=== PATIENT | male | born 1975 | race Caucasian/White ===

== ENCOUNTER → 2017-04-15 | Outpatient (CLI) | payer BC ==
[~2017-04-15] MED LIST: CYCL10TA2 PO; DOCU-109 PO; HYDR-2758 PO; HYDR-2762 PO; IBUP-1060 PO; NAPR500T4 PO
[2017-04-15 16:07] LABS: BASO # 0.1 x10^3/uL (0.0-0.2); BASO % 1 % (0-3); EOS % 2 % (0-3); HEMOGLOBIN 15.6 g/dL (13.0-17.5); LYMPH # 2.9 x10^3/uL (1.0-4.8); LYMPH % 28 % (24-48); MEAN CORPUSCULAR HEMOGLOBIN 29 pg (25-35); MEAN CORPUSCULAR HGB CONC 35 g/dL (31-37); MEAN CORPUSCULAR VOLUME 83 fL (79-100); MONO % 8 % (0-9); NEUT % 61 % (31-73); PLATELET COUNT 289 x10^3/uL (140-400); RED BLOOD COUNT 5.45 x10^6/uL (4.30-5.70); RED CELL DISTRIBUTION WIDTH 13.8 % (11.5-14.5); WHITE BLOOD COUNT 10.3 x10^3/uL (4.0-11.0)
[2017-04-15 16:30] LABS: ALBUMIN 4.4 g/dL (3.4-5.0); ALBUMIN/GLOBULIN RATIO 1.2 (1.0-1.7); CALCIUM 9.1 mg/dL (8.5-10.1); CREATININE 1.1 mg/dL (0.7-1.3); GFR 74.1; POTASSIUM 3.9 mmol/L (3.5-5.1); TOTAL BILIRUBIN 0.6 mg/dL (0.2-1.0)
--- NOTE | 2017-04-17 15:47 | PREOP HP ---
DATE OF SERVICE: 04/17/2017 HISTORY OF PRESENT ILLNESS: The patient is a pleasant 41-year-old who has a problem with a herniated disk on the right side at C6-C7 with right triceps weakness. He notes that his pain has been increasing recently. He continues to notice that looking up makes his right fingers go numb. He feels the weakness in his right arm is about the same. His right neck and shoulder pain have increased. He rates his pain as a 3/10 at rest. He continues to notice improvement when he looks down and to the left. He notes that he is taking [place] and Flexeril still. Because of cost considerations, he did not go forward with epidural steroid injections. He limited his activities, but that has not helped him. PAST MEDICAL HISTORY: Head/neck injury. PAST SURGICAL HISTORY: Cervical laminectomy in 2009. FAMILY HISTORY: Diabetes. 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 . Regular exercises. Denies tobacco use. Denies alcohol consumption. Drinks coffee and tea daily. ALLERGIES: PENICILLIN. CURRENT MEDICATIONS: Ibuprofen, hydrocodone/acetaminophen, cyclobenzaprine. REVIEW OF SYSTEMS: A 12-point review of systems was obtained and is noncontributory except that mentioned above. PHYSICAL EXAMINATION: GENERAL APPEARANCE: Alert, pleasant, no acute distress. HEAD: Normocephalic and atraumatic. EXTREMITIES: No clubbing, cyanosis or edema. NEUROLOGIC: Strength was 5/5 in bilateral upper extremities except for the fact that he continues to have 4/5 strength in his right triceps, although I believe it is slightly stronger than his last visit. Sensation intact to light touch in bilateral upper extremities except he notices numbness in the fingers of his right hand when he looks down and to the right. The remainder of the examination is unremarkable. He continues to have tenderness in the posterior cervical region on the right side over the right trapezius muscle. Normal gait. ASSESSMENT: 1. Cervical disk disorder at C5-C6 level with radiculopathy. 2. Cervical disk disorder at C6-C7 with radiculopathy. The patient thinks pain is increasing. His strength is perhaps slightly better, but not significantly so. At this point, my recommendation is for him to undergo a 2-level anterior cervical diskectomy and fusion to include C6-C7 and C5-C6. I outlined the surgery and the risks involved including injury to the carotid artery, trachea, esophagus. I spoke about the risks of paralysis. I outlined the postoperative course for him. He would like to go ahead. We will make the arrangements. NIC CARLIN MD DR: ANDREA/derian JOB#: [id number] / [id number]
== END | disposition home or self-care (01) ==
LOC: SURGPAT 13:05
PROVIDERS: ATTEND Neurological Surgery
DX: Z01.818 Encounter for other preprocedural examination (principal); M50.122 Cervical disc disorder at C5-C6 level with radiculopathy; M50.123 Cervical disc disorder at C6-C7 level with radiculopathy
CPT/HCPCS: 36415; 80053; 85025; 87641

== ENCOUNTER 2017-04-19 07:11 | Observation (INO) | payer BC ==
[2017-04-19] VITALS (9 sets, daily range): BP systolic 103–119; BP diastolic 55–81
[~2017-04-19] VITALS: Ht 185.4 cm; Wt 98.9 kg
[~2017-04-19 07:11] MED LIST changes: +BACITRACIN 50,000 UNIT in IV NORMAL SALINE 1000ML BAG 1,000 ML IRR ONE; +BUPIVAC MPF-EPI 0.5%-1:200000 30 ML VIAL. ONE; -DOCU-109 PO; +GELATIN SPONGE SIZE 100. ONE; -HYDR-2762 PO; +HYDROmorphone 2 MG/ML VIAL IV PRN; +IV RINGERS,LACTATED 1000ML 1,000 ML IV SCH; +LIDOCAINE 1% PF 2 ML VIAL. ID PRN; +ONDANSETRON PF 4 MG/2 ML VIAL. IV PRN; +PROCHLORPERAZINE 10 MG/2 ML VIAL. IV PRN; +THROMBIN TOPICAL 20,000 UNIT SPRAY.SYRN KIT TP ONE; +VANCOMYCIN 1GM IVPB FOR OMNI 250 ML IV PRN; +fentaNYL PF VIAL 100 MCG/2 ML VIAL IV PRN
[2017-04-19] MEDS ORDERED: ROCURONIUM 50 MG/5 ML VIAL. ONE (08:24)
[2017-04-19] MEDS ORDERED: REMIFENTANIL 2 MG VIAL. IV ONE (08:24)
[2017-04-19] MEDS ORDERED: MIDAZOLAM HCL/PF 2 MG/2 ML VIAL. ONE (08:24)
[2017-04-19] MEDS ORDERED: fentaNYL PF VIAL 250 MCG/5 ML VIAL ONE (08:24)
[2017-04-19] MEDS ORDERED: PROPOFOL 50 ML IV ONE (08:25)
[2017-04-19] MEDS ORDERED: PROPOFOL 20 ML IV ONE (08:25)
[2017-04-19] MEDS ORDERED: ONDANSETRON PF 4 MG/2 ML VIAL. ONE (08:25)
[2017-04-19] MEDS ORDERED: DEXAMETHASONE SOD PHOS 20 MG/5 ML VIAL. ONE (08:25)
[2017-04-19] MEDS ORDERED: LIDOCAINE 2% PF Vial for OR 5 ML VIAL. ONE (08:25)
[2017-04-19] MEDS ORDERED: 0.9 % SODIUM CHLORIDE 50 ML VIAL. IJ ONE (08:29)
[2017-04-19] MEDS ORDERED: DESFLURANE > 120 MINUTES IH ONE (12:10)
[2017-04-19] MEDS ORDERED: diphenhydrAMINE HCL 25 MG CAPSULE PO PRN (12:15)
[2017-04-19] MEDS ORDERED: diphenhydrAMINE 50 MG/ML VIAL IV PRN (12:15)
[2017-04-19] MEDS ORDERED: 0.9 % SODIUM CHLORIDE 10 ML DISP.SYRIN. IV PRN (12:15)
[2017-04-19] MEDS ORDERED: ACETAMINOPHEN 325 MG TABLET. PO PRN (12:15)
[2017-04-19] MEDS ORDERED: ZOLPIDEM 5 MG TABLET. PO PRN (12:15)
[2017-04-19] MEDS ORDERED: CYCLOBENZAPRINE 10 MG TABLET. PO PRN (12:15)
[2017-04-19] MEDS ORDERED: fentaNYL PF VIAL 100 MCG/2 ML VIAL IV PRN (12:15)
[2017-04-19] MEDS ORDERED: MAGNESIUM HYDROXIDE 2,400 MG/30 ML ORAL.SUSP. PO PRN (12:15)
[2017-04-19] MEDS ORDERED: ONDANSETRON PF 4 MG/2 ML VIAL. IV PRN (12:15)
[2017-04-19] MEDS ORDERED: MAG HYDROX/ALUMINUM HYD/SIMETH 30 ML ORAL.SUSP PO PRN (12:15)
[2017-04-19] MEDS ORDERED: HYDROcodone/APAP 7.5/325MG 1 TAB TABLET PO PRN (12:15)
[2017-04-19] MEDS ORDERED: CALCIUM CARBONATE 500 MG TAB.CHEW PO PRN (12:15)
[2017-04-19] MEDS: MORPHINE SULFATE 2 MG/ML DISP.SYRIN. IV PRN ×2 (12:46→13:07)
--- NOTE | 2017-04-19 14:11 | OP ---
DATE OF SURGERY: 04/19/2017 PREOPERATIVE DIAGNOSES: Herniated cervical disc, C5-C6, C6-C7, with right cervical radiculopathy and weakness. POSTOPERATIVE DIAGNOSIS: Herniated cervical disc, C5-C6, C6-C7, with right cervical radiculopathy and weakness. OPERATION PERFORMED: Anterior cervical microdiscectomy C5-C6, C6-C7; anterior cervical interbody fusion C5-C6, C6-C7, with allograft bone block, anterior cervical plate C5, C6, C7. The operation was done with EMG monitoring, SSEP monitoring, Nims monitoring, fluoroscopy, microscopic dissection. SURGEON: Robert Carlin M.D. MONITOR AND STORAGE BIN TENDER: Karson Nino MD, assisted with surgery, assisted with the exposure, the two level microdiscectomy, fusion, instrumentation and closure. Note the instrumentation used was [employer]. OPERATIVE INDICATIONS: The patient is a very pleasant 41-year-old who developed severe intractable neck and right arm pain along with right triceps weakness. He was followed for a time. The problem would not resolve, and he actually began to develop more and more difficulties, especially as he tried to increase his activities. On imaging studies, there was a herniated cervical disc on the right side of moderate size with severe right lateral recess and neural foraminal narrowing at C6-C7. At C5-C6, there was a left-sided disc herniation of similar size and configuration. I recommended a 2-level anterior cervical microdiscectomy and fusion. I spoke with him about the surgery and the risks, technique and expected postoperative course, and he wished to go ahead. DESCRIPTION OF PROCEDURE: Following general endotracheal anesthesia, the patient was positioned supine on the operating room table. Anterior cervical region was then placed in a neutral position. He was prepped and draped in the standard fashion. CINTHYA hose and A-V impulse boots were applied for DVT prophylaxis. A microscope was draped. Fluoroscopy was draped and brought in the field. Vancomycin 1 gram was given. Using fluoroscopic guidance, an incision was made from the midline around to the right side in the skin crease in the anterior cervical region. I dissected the skin, subcutaneous tissue. I dissected around the medial aspect of the sternocleidomastoid and carotid artery sheath after sharply dividing a portion of the platysma muscle. I reflected gently the trachea and esophagus contralaterally, and I confirmed my position at C6-C7. I placed the retractors, wedged in the longus colli muscle and placed 14 mm pins in C6 and C7 and brought in the microscope at this time. I distracted the disc space and incised the anterior annulus with #11 blade. I performed discectomy with pituitary rongeurs. I carefully scraped away the cartilaginous endplate posteriorly, I drilled the posterior spurring and then gently worked through the annulus, which was largely torn, trimming this away, there was a large subligamentous disc fragment. I did open the ligament widely bilaterally, and this actually helped me lift up and tease back multiple disc fragments from the right lateral recess. As I worked, I was able to fully decompress the entire region. I irrigated copiously with antibiotic solution. Hemostasis was excellent. I did prepare the endplates carefully, and I measured and placed a 7 mm lordotic cage, which was packed with allograft bone. This was gently tapped into position and then removed the pin from C7 and moved the retractors up to C5-C6. I performed the identical operation at C5-C6, although the disc was on the left side at this point. Again, it was a subligamentous disc fragment. Again in a similar fashion, I opened the annulus and ligament and teased back and removed multiple disc fragments and opened this area widely. I also worked toward the right side as well and assured myself that that site was quite free and open. I again prepared the endplate. I again obtained perfect hemostasis. I placed an interbody fusion cage, which was 7 mm, which again was packed with allograft. Once this was tapped into position, I then measured and placed a 31 mm anterior plate, I placed the superior and inferior 14 mm screws first, followed by the remaining screws. I did not like the purchase of the inferior 2 screws and switched these out for rescue screws, which were 4.5 mm. At this point, I had excellent secure contact with the underlying bone. The plate was in excellent position. I irrigated copiously. I locked all of the screws and then removed the retractor. I explored carefully and assured myself of excellent hemostasis. Films looked quite good. I closed the platysma as a separate layer, then closed the subcutaneous tissues. The skin was closed with a 4-0 subcuticular stitch. The operation went very well. I was quite pleased with the surgery. ROBERT CARLIN MD DR: ANDREA/derian JOB#: [id number] / [id number] RADHA
[2017-04-19] MEDS: DOCUSATE SODIUM 100 MG CAPSULE. PO SCH ×2 (14:21→20:58)
[2017-04-19] MEDS: POTASSIUM CL 20MEQ D5-0.45NACL 1,000 ML IV SCH (14:22)
[2017-04-19] MEDS: fentaNYL PF VIAL 100 MCG/2 ML VIAL IV PRN (18:19)
[2017-04-19] MEDS ORDERED: VANCOMYCIN 1 GM in IV DEXTROSE 5% 250 ML IV ONE (21:00)
[2017-04-20] MEDS: POTASSIUM CL 20MEQ D5-0.45NACL 1,000 ML IV SCH ×2 (01:58→14:41)
[2017-04-20] MEDS: fentaNYL PF VIAL 100 MCG/2 ML VIAL IV PRN ×2 (01:58→05:59)
[2017-04-20 03:00] VITALS: BP 110/70
[2017-04-20 07:00] VITALS: BP 128/81
[2017-04-20] MEDS: DOCUSATE SODIUM 100 MG CAPSULE. PO SCH (09:26)
[2017-04-20] MEDS: HYDROcodone/APAP 7.5/325MG 1 TAB TABLET PO PRN ×2 (09:29→15:31)
[2017-04-20 11:00] VITALS: BP 133/86
--- NOTE | 2017-04-20 11:26 | PDOC ---
PROGRESS NOTES Subjective Subjective POD #1 S/P ACDF C5-6, C6-7 Still some right arm pain and numbness Objective Objective Vital Signs Date Time Temp Pulse Resp B/P (MAP) Pulse Ox O2 Delivery O2 Flow Rate FiO2 04/20/17 10:46 95 Room Air 2.0 04/20/17 07:00 98.2 95 18 128/81 (97) 98.2 Intake and Output 04/20/17 07:00 Intake Total 2240 ml Output Total 725 ml Balance 1515 ml Intake Oral 490 ml IV Total 1750 ml Output Urine Total 700 ml Estimated Blood Loss 25 ml Physical Exam General: Alert, Oriented X3, Cooperative, Other (voice clear) Neuro: Other (strength in UE now 5/5) Skin: Other (dressing C,D,I, flat) Plan Plan of Care may dc home f/u 2 weeks Comment Review of Relevant I have reviewed the following items ivan (where applicable) has been applied. Medications Current Medications Ondansetron HCl (Zofran) 4 mg PRN Q6HRS PRN IV NAUSEA/VOMITING; Start 04/19/17 at 07:00; Stop 04/20/17 at 06:59; Status DC Fentanyl Citrate (Fentanyl 2ml Vial) 25 mcg PRN Q5MIN PRN IV MILD PAIN; Start 04/19/17 at 07:00; Stop 04/20/17 at 06:59; Status DC Fentanyl Citrate (Fentanyl 2ml Vial) 50 mcg PRN Q5MIN PRN IV MODERATE PAIN; Start 04/19/17 at 07:00; Stop 04/20/17 at 06:59; Status DC Morphine Sulfate 1 mg PRN Q10MIN PRN IV SEVERE PAIN Last administered on 13:07; Start 04/19/17 at 07:00; Stop 04/20/17 at 06:59; Status DC Ringer's Solution 1,000 ml @ 30 mls/hr Q24H IV Last administered on 04/19/17 07:00; Start 04/19/17 at 07:00; Stop 04/19/17 at 18:59; Status DC Lidocaine HCl (Xylocaine-Mpf 1% Vial) 2 ml PRN 1X PRN ID IV START; Start at 07:00; Stop 04/20/17 at 06:59; Status DC Hydromorphone HCl (Dilaudid) 0.5 mg PRN Q10MIN PRN IV SEV PAIN, Second choice; Start 04/19/17 at 07:00; Stop 04/20/17 at 06:59; Status DC Prochlorperazine Edisylate (Compazine) 5 mg PACU PRN PRN IV NAUSEA, MRX1 Last administered on 04/19/17 13:07; Start 04/19/17 at 07:00; Stop 04/20/17 at 06:59 ; Status DC Bacitracin 48310 unit/Sodium Chloride 1,000 ml @ 1,000 mls/hr 1X PERIOP ONCE IRR Last administered on 04/19/17 09:46; Start 04/19/17 at 06:00; Stop at 06:59; Status DC Vancomycin HCl 250 ml @ 250 mls/hr 1X PREOP PRN IV PRIOR TO PROCEDURE Last administered on 04/19/17 08:50; Start 04/19/17 at 06:00; Stop 04/19/17 at 18:00 ; Status DC Gelatin (Gelfoam Size 100) 1 each STK-MED ONCE .ROUTE Last administered on 09:46; Start 04/19/17 at 07:08; Stop 04/19/17 at 07:09; Status DC Bupivacaine HCl/ Epinephrine Bitart (Sensorcain-Mpf Epi 0.5%-1:[id number]) 30 ml STK -MED ONCE .ROUTE Last administered on 04/19/17 09:46; Start 04/19/17 at 07:08 ; Stop 04/19/17 at 07:09; Status DC Thrombin 20,000 unit STK-MED ONCE TP Last administered on 04/19/17 09:46; Start 04/19/17 at 07:09; Stop 04/19/17 at 07:10; Status DC Midazolam HCl (Versed) 2 mg STK-MED ONCE .ROUTE ; Start 04/19/17 at 08:24; Stop 04/19/17 at 08:25; Status DC Fentanyl Citrate (Fentanyl 5ml Vial) 250 mcg STK-MED ONCE .ROUTE ; Start at 08:24; Stop 04/19/17 at 08:25; Status DC Remifentanil HCl (Ultiva) 2 mg STK-MED ONCE IV ; Start 04/19/17 at 08:24; Stop 04/19/17 at 08:25; Status DC Rocuronium [place] (Zemuron) 50 mg STK-MED ONCE .ROUTE ; Start 04/19/17 at 08:24 ; Stop 04/19/17 at 08:25; Status DC Ondansetron HCl (Zofran) 4 mg STK-MED ONCE .ROUTE ; Start 04/19/17 at 08:25; Stop 04/19/17 at 08:26; Status DC Dexamethasone Sodium Phosphate (Decadron) 20 mg STK-MED ONCE .ROUTE ; Start 04/19/17 at 08:25; Stop 04/19/17 at 08:26; Status DC Propofol 50 ml @ As Directed STK-MED ONCE IV ; Start 04/19/17 at 08:25; Stop at 08:26; Status DC Lidocaine HCl (Lidocaine Pf 2% Vial) 5 ml STK-MED ONCE .ROUTE ; Start 04/19/17 at 08:25; Stop 04/19/17 at 08:26; Status DC Propofol 20 ml @ As Directed STK-MED ONCE IV ; Start 04/19/17 at 08:25; Stop at 08:26; Status DC Sodium Chloride (Sodium Chloride) 50 ml STK-MED ONCE IJ ; Start 04/19/17 at 08: 29; Stop 04/19/17 at 08:30; Status DC Cyclobenzaprine HCl (Flexeril) 10 mg PRN DAILY PRN PO MUSCLE SPASMS Last administered on 04/19/17 14:21; Start 04/19/17 at 12:15 Acetaminophen/ Hydrocodone Bitart (Lortab 7.5/325) 1 tab PRN Q6HRS PRN PO PAIN Last administered on 04/20/17 09:29; Start 04/19/17 at 12:15 Acetaminophen/ Hydrocodone Bitart (Lortab 7.5/325) 2 tab PRN Q6HRS PRN PO PAIN Last administered on 04/19/17 14:21; Start 04/19/17 at 12:15 Fentanyl Citrate (Fentanyl 2ml Vial) 50 mcg PRN Q2HR PRN IV PAIN Last administered on 04/20/17 05:59; Start 12/1/17 at 12:15 Fentanyl Citrate (Fentanyl 2ml Vial) 25 mcg PRN Q2HR PRN IV PAIN; Start at 12:15 Vancomycin HCl 1 gm/Dextrose 250 ml @ 250 mls/hr 1X ONCE IV Last administered on 04/19/17 20:58; Start 04/19/17 at 21:00; Stop 04/19/17 at 21:59 ; Status DC Acetaminophen (Tylenol) 650 mg PRN Q6HRS PRN PO MILD PAIN / TEMP; Start at 12:15 Al Hydroxide/Mg Hydroxide (Mylanta Plus Xs) 30 ml PRN Q3HRS PRN PO HEARTBURN / GAS; Start 04/19/17 at 12:15 Calcium Carbonate/ Glycine (Tums) 500 mg PRN Q3HRS PRN PO INDIGESTION; Start 04/19/17 at 12:15 Diphenhydramine HCl (Benadryl) 25 mg PRN Q6HRS PRN PO ITCHING; Start 04/19/17 at 12:15 Diphenhydramine HCl (Benadryl) 25 mg PRN Q6HRS PRN IV ITCHING; Start 04/19/17 at 12:15 Zolpidem Tartrate (Ambien) 5 mg PRN QHS PRN PO INSOMNIA, MAY REPEAT IN 1HR; Start 04/19/17 at 12:15 Sodium Chloride (Normal Saline Flush) 3 ml QSHIFT PRN IV AFTER MEDS AND BLOOD DRAWS; Start 04/19/17 at 12:15 Potassium Chloride/Dextrose/ Sod Cl 1,000 ml @ 75 mls/hr [id number] IV Last administered on 04/20/17 01:58; Start 04/19/17 at 12:01 Docusate Sodium (Colace) 100 mg BID PO Last administered on 04/20/17 09:26; Start 04/19/17 at 13:00 Magnesium Hydroxide (Milk Of Magnesia) 2,400 mg PRN Q12HR PRN PO CONSTIPATION; Start 04/19/17 at 12:15 Ondansetron HCl (Zofran) 4 mg PRN Q6HRS PRN IV NAUESA, 1ST CHOICE; Start at 12:15 Desflurane (Suprane) 90 ml STK-MED ONCE IH ; Start 04/19/17 at 12:10; Stop 04/19 at 12:11; Status DC Active Scripts Active Reported Hydrocodone-Apap 5-325 (Hydrocodone Bit/Acetaminophen) 1 Each Tablet 1 Tab PO PRN Q6HRS PRN Naproxen 500 Mg Tablet 1 Tab PO BID Ibuprofen 800 Mg Tablet 800 Mg PO PRN Q6HRS PRN Cyclobenzaprine Hcl 10 Mg Tablet 10 Mg PO PRN DAILY PRN Vitals/I & O Vital Sign - Last 24 Hours 04/19/17 04/19/17 04/19/17 04/19/17 12:12 12:12 12:27 12:42 Temp 98.3 98.3 Pulse 92 91 78 Resp 20 20 20 B/P (MAP) 114/76 120/79 128/79 Pulse Ox 99 98 91 O2 Delivery Mask Simple Mask Simple Mask Room Air O2 Flow Rate 10 10 10 04/19/17 04/19/17 04/19/17 04/19/17 12:46 12:57 13:07 13:12 Temp 97.5 97.5 Pulse 80 77 Resp 20 20 20 20 B/P (MAP) 99/58 97/76 Pulse Ox 93 93 93 O2 Delivery Nasal Cannula Nasal Cannula Nasal Cannula Nasal Cannula O2 Flow Rate 2.0 2 2.0 2 04/19/17 04/19/17 04/19/17 04/19/17 13:27 13:30 13:45 13:53 Temp 98.2 98.2 98.2 98.2 Pulse 84 92 84 Resp 16 16 B/P (MAP) 107/74 (85) 112/75 (87) 107/74 (85) Pulse Ox 94 94 O2 Delivery Nasal Cannula Nasal Cannula Nasal Cannula O2 Flow Rate 2 2.0 2.0 04/19/17 04/19/17 04/19/17 04/19/17 14:00 14:15 14:21 14:45 Pulse 95 79 75 B/P (MAP) 112/75 (87) 104/60 (75) 119/81 (94) O2 Delivery Room Air 04/19/17 04/19/17 04/19/17 04/19/17 15:15 17:03 18:19 18:58 Pulse 85 B/P (MAP) 107/74 (85) O2 Delivery Nasal Cannula Nasal Cannula Nasal Cannula O2 Flow Rate 2.0 2.0 2.0 04/19/17 04/19/17 04/19/17 04/20/17 19:00 20:00 23:00 01:58 Temp 97.9 97.5 97.9 97.5 Pulse 95 76 Resp 16 16 B/P (MAP) 103/55 (71) 110/61 (77) Pulse Ox 93 96 96 O2 Delivery Nasal Cannula Nasal Cannula Nasal Cannula Nasal Cannula O2 Flow Rate 2.0 2.0 2.0 2.0 04/20/17 04/20/17 04/20/17 04/20/17 02:28 03:00 05:59 07:00 Temp 97.9 98.2 97.9 98.2 Pulse 82 95 Resp 16 16 16 18 B/P (MAP) 110/70 (83) 128/81 (97) Pulse Ox 95 95 91 O2 Delivery Nasal Cannula Nasal Cannula O2 Flow Rate 2.0 2.0 04/20/17 04/20/17 04/20/17 04/20/17 07:05 08:20 09:29 10:46 Pulse Ox 95 95 95 O2 Delivery Room Air Room Air Room Air Room Air O2 Flow Rate 2.0 2.0 2.0 Intake and Output 04/19/17 04/19/17 04/20/17 15:00 23:00 07:00 Intake Total 1750 ml 250 ml 240 ml Output Total 25 ml 700 ml Balance 1725 ml -450 ml 240 ml NIC CARLIN MD Apr 20, 2017 11:26
--- NOTE | 2017-04-20 11:42 | DISCH ---
DISCHARGE INSTRUCTIONS Condition on Discharge Condition on Discharge: Stable Activity After Discharge Activity Instructions for Disc: Activity as tolerated, Avoid exertion Other activity instructions: no driving for a week Bathing Instructions: Shower-keep dressing dry Lifting Instructions after Dis: No heavy lifting, No pulling or pushing, Do not lift >10 pounds Diet after Discharge Additional Diet Restrictions: resume home diet Wound Incision Care Wound/Incision Care: Ice to area for comfort Other wound/incision instructi: may remove dressing in 48 hrs if dry then may shower- no soaking Contacting the after DC Call your doctor for: Concerns you may have Follow-Up Follow up with: Dr. Carlin's nurse in 2 weeks [phone] NIC CARLIN MD Apr 20, 2017 11:42
[2017-04-20] MEDS ORDERED: DOCU-109 PO (11:43)
[2017-04-20] MEDS ORDERED: HYDR-2762 PO (11:43)
--- NOTE | 2017-04-20 17:22 | PREOP HP ---
DATE OF SERVICE: 04/17/2017 HISTORY OF PRESENT ILLNESS: The patient is a pleasant 41-year-old who has a problem with a herniated disk on the right side at C6-C7 with right triceps weakness. He notes that his pain has been increasing recently. He continues to notice that looking up makes his right fingers go numb. He feels the weakness in his right arm is about the same. His right neck and shoulder pain have increased. He rates his pain as a 3/10 at rest. He continues to notice improvement when he looks down and to the left. He notes that he is taking [place] and Flexeril still. Because of cost considerations, he did not go forward with epidural steroid injections. He limited his activities, but that has not helped him. PAST MEDICAL HISTORY: Head/neck injury. PAST SURGICAL HISTORY: Cervical laminectomy in 2009. FAMILY HISTORY: Diabetes. 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 . Regular exercises. Denies tobacco use. Denies alcohol consumption. Drinks coffee and tea daily. ALLERGIES: PENICILLIN. CURRENT MEDICATIONS: Ibuprofen, hydrocodone/acetaminophen, cyclobenzaprine. REVIEW OF SYSTEMS: A 12-point review of systems was obtained and is noncontributory except that mentioned above. PHYSICAL EXAMINATION: GENERAL APPEARANCE: Alert, pleasant, no acute distress. HEAD: Normocephalic and atraumatic. EXTREMITIES: No clubbing, cyanosis or edema. NEUROLOGIC: Strength was 5/5 in bilateral upper extremities except for the fact that he continues to have 4/5 strength in his right triceps, although I believe it is slightly stronger than his last visit. Sensation intact to light touch in bilateral upper extremities except he notices numbness in the fingers of his right hand when he looks down and to the right. The remainder of the examination is unremarkable. He continues to have tenderness in the posterior cervical region on the right side over the right trapezius muscle. Normal gait. ASSESSMENT: 1. Cervical disk disorder at C5-C6 level with radiculopathy. 2. Cervical disk disorder at C6-C7 with radiculopathy. The patient thinks pain is increasing. His strength is perhaps slightly better, but not significantly so. At this point, my recommendation is for him to undergo a 2-level anterior cervical diskectomy and fusion to include C6-C7 and C5-C6. I outlined the surgery and the risks involved including injury to the carotid artery, trachea, esophagus. I spoke about the risks of paralysis. I outlined the postoperative course for him. He would like to go ahead. We will make the arrangements. NIC CARLIN MD DR: ANDREA/derian JOB#: [id number] / [id number]
--- NOTE | 2017-04-22 16:02 | PATHOLOGY ---
PATHOLOGY REPORT * * * * * * * * FINAL DIAGNOSIS: Segments of fibrocartilaginous tissue and minute segments of bone, cervical disc: - Degenerative changes of fibrocartilaginous tissue. (JPM:anjana; 04/22/2017) COMMENT: There is no evidence of an acute inflammatory process or malignancy. REPORT ELECTRONICALLY SIGNED BY: Js Morocho M.D. DATE/TIME: 04/22/2017 16:01 * * * * * * * * GROSS PATHOLOGY: Received in formalin labeled "Brooklynn Taylor, cervical disc," are multiple segments of woodward rubbery and gritty tissue measuring 1.5 x 0.9 x 0.4 cm in aggregate dimensions, containing small fragments of possible bone. The tissue is filtered and submitted entirely in cassette A1, following decalcification. (TSD; 04/20/2017) INITIAL CPT CODE(S): A; 97393, 73413 Professional services performed [place] [facility] [place] [address] Technical services performed by [facility] at [address] [place] [address]. SPECIMEN(S) RECEIVED: A.Cervical disc CLINICAL HISTORY: Tricep weakness, cervical herniated disc with radiculopathy PATIENT: BROOKLYNN TAYLOR /AGE: 610/30/1975 (Age: 41) PATIENT #: [id number] ALT CASE #: SPECIMEN COLLECTION DATE: 04/19/2017 SPECIMEN RECEIVED DATE: 04/19/2017 [facility] - [address] [place] [address] - PHONE: [phone] * * * END OF REPORT * * *
== END 2017-04-20 15:30 | disposition home or self-care (01) ==
LOC: SURG 07:11 → 4 NORTH 12:44
PROVIDERS: ADMIT Neurological Surgery; ATTEND Neurological Surgery
DX: M50.123 Cervical disc disorder at C6-C7 level with radiculopathy (principal); Z83.3 Family history of diabetes mellitus; Z98.1 Arthrodesis status
CPT/HCPCS: 20931; 22551; 22552; 22853; 76000; 88304; 88311; 96365; 96375; 96376; 97161; C1713; G0378; G0379; G8978; G8979; G8980; J0780; J1100; J2250; J2270; J2704; J3010; J3370; J3490; J7030; J7120; J2405; J2001